=== PATIENT | female | born 2000 | race Caucasian/White ===

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

== ENCOUNTER 2019-02-08 22:14 | Emergency (ER) | payer MEDICAID ==
[~2019-02-08] VITALS: Ht 156.2 cm; Wt 95.5 kg
[2019-02-08 22:18] VITALS: Ht 156.2 cm; Wt 95.5 kg
[2019-02-08] MEDS ORDERED: HYDROCODONE-A1 UDTA2 PO (22:42)
[2019-02-08] MEDS ORDERED: CLEOCIN HCL300 MG PO (22:43)
[2019-02-08 22:52] VITALS: BP 128/70
== END 2019-02-08 22:52 | disposition home or self-care (01) ==
LOC: D.ER 22:14
DX: T24.292A Burn of second degree of multiple sites of left lower limb, except ankle and foot, initial encounter (principal); X58.XXXA Exposure to other specified factors, initial encounter; F17.210 Nicotine dependence, cigarettes, uncomplicated

== ENCOUNTER 2019-12-15 16:10 | Emergency (ER) | payer MEDICAID ==
[~2019-12-15 16:10] MED LIST changes: +CLEOCIN HCL300 MG PO; +HYDROCODONE-A1 UDTA2 PO
[2019-12-15 16:31] VITALS: Ht 156.2 cm
[2019-12-15 17:38] LABS: BASOPHILS 0.1 % (0-2); EOSINOPHILS 0.1 % (0-7); HEMATOCRIT 40.8 % (36.0-48.0); HEMOGLOBIN 13.3 g/dL (12-16); IMMATURE GRANULOCYTES 0.2 % (0-5); LYMPHOCYTES 8.3 % (15-50); MCH 26.8 pg (26.0-34.0); MCHC 32.6 g/dL (31.0-37.0); MCV 82.3 fL (80.0-100.0); MEAN PLATELET VOLUME 9.8 fL (7.4-10.4); MONOCYTES 4.9 % (2-11); NEUTROPHILS 86.4 % (40-80); RBC 4.96 10x6/uL (4.00-5.40)
[2019-12-15 17:45] LABS: PLATELET COUNT 290 10x3/uL (130-400)
[2019-12-15 17:55] LABS: CALC OSMOLALITY 273 mosm/kg (275-300); CALCIUM 8.8 mg/dL (8.5-10.1); CARBON DIOXIDE 29.1 mmol/L (21.0-32.0); CHLORIDE - SERUM 104 mmol/L (98-107); CREATININE - SERUM 0.8 mg/dL (0.6-1.3); GLUCOSE 94 mg/dL (74-106); POTASSIUM - SERUM 3.7 mmol/L (3.5-5.1); SODIUM 138 mmol/L (136-145); UREA NITROGEN 6 mg/dL (7-18); eGFR NON AFRICAN AMERICAN > 90 mL/min (90-120)
[2019-12-15 18:03] LABS: ALKALINE PHOSPHATASE 50 U/L (30-120); ALT (SGPT) 20 U/L (10-68); BILIRUBIN - TOTAL 1.24 mg/dL (0.2-1.3); PROTEIN - SERUM 7.6 g/dL (6.4-8.2)
[2019-12-15] MEDS ORDERED: DOXYCYCLINE HY100 M2 PO (19:05)
[2019-12-15] MEDS ORDERED: HYDROCODON-ACE1 EA10 PO (19:05)
[2019-12-15] MEDS ORDERED: FLAGYL500 MG PO (19:05)
[2019-12-15 19:32] VITALS: BP 145/97
== END 2019-12-15 19:32 | disposition home or self-care (01) ==
LOC: D.ER 16:10
PROVIDERS: Family Medicine
DX: S02.2XXA Fracture of nasal bones, initial encounter for closed fracture (principal); Y04.1XXA Assault by human bite, initial encounter; Y93.9 Activity, unspecified; Y92.9 Unspecified place or not applicable; S50.12XA Contusion of left forearm, initial encounter; S51.852A Open bite of left forearm, initial encounter; S01.112A Laceration without foreign body of left eyelid and periocular area, initial encounter; K21.9 Gastro-esophageal reflux disease without esophagitis